=== PATIENT | male | born 1955 | race African-American/Black ===

== ENCOUNTER 2017-09-12 18:09 | Emergency (ER) | payer SELFPAY | END 2017-09-12 19:26 | disposition home or self-care (01) | LOC: ER 18:09 | DX: M25.512 Pain in left shoulder (principal); E11.9 Type 2 diabetes mellitus without complications; E78.00 Pure hypercholesterolemia, unspecified; I10 Essential (primary) hypertension; W18.39XA Other fall on same level, initial encounter; Y93.89 Activity, other specified; Y99.8 Other external cause status; Y92.89 Other specified places as the place of occurrence of the external cause | CPT/HCPCS: 99283 ==